=== PATIENT | male | born 1950 | race Caucasian/White ===

== ENCOUNTER → 2016-09-17 | Outpatient (CLI) | payer MEDICARE, OTHER ==
[~2016-09-17] MED LIST: CALCIUM + D 6001 TA1 PO; CARDI-OMEGA1000 MG PO; COZAAR100 MG PO; IBUPRIN200 MG PO; LORATADINE10 MG PO; PRILOSEC 20MG20 MG PO; TIAZAC360 MG PO
== END ==
LOC: LAB 11:08
DX: C61 Malignant neoplasm of prostate (principal); I25.10 Atherosclerotic heart disease of native coronary artery without angina pectoris; I10 Essential (primary) hypertension; E78.2 Mixed hyperlipidemia

== ENCOUNTER → 2017-08-12 | Outpatient (CLI) | payer MEDICARE, OTHER ==
[2013-11-23 10:23] VITALS: BP 144/88
[2017-08-12 11:25] LABS: EOS # 0.2 (0.04-0.40); EOS % 2.5 % (0.0-4.0); HEMATOCRIT 46.9 % (42.0-52.0); HEMOGLOBIN 15.3 g/dL (13.5-18.0); LYMPH# 1.9 (1.50-4.00); MEAN CELL VOLUME 90 fl (78-100); MEAN CORPUSCULAR HEMOGLOBIN 29 pg (27-31); MEAN CORPUSCULAR HGB CONC 33 g/dL (33-37); MEAN PLATELET VOLUME 9.6 fl (7.4-10.4); MONO # 0.6 (0.20-0.80); NEU # 3.3 (1.40-6.50); PLATELET COUNT 223 K/mm3 (130-400); RED BLOOD COUNT 5.22 M/mm3 (4.20-5.60); RED CELL DISTRIBUTION WIDTH 13.1 % (11.5-14.5)
[2017-08-12 11:39] LABS: ALBUMIN 3.8 g/dL (3.5-5.0); BUN/CREATININE RATIO 18.6 (6.0-26.0); CALCIUM 8.3 mg/dL (8.4-10.2); POTASSIUM 3.5 mmol/L (3.6-5.0); TOTAL BILIRUBIN 0.7 mg/dL (0.2-1.3); TOTAL PROTEIN 7.4 g/dL (6.3-8.2)
[2017-08-12 12:45] LABS: ERYTHROCYTE SEDIMENTATION RATE 7 mm/hr (0-20)
[2017-08-13 00:27] LABS: TESTOSTERONE 554 ng/dL (221-716)
== END ==
LOC: LAB 11:09
PROVIDERS: Internal Medicine
DX: I10 Essential (primary) hypertension (principal); C61 Malignant neoplasm of prostate; D50.8 Other iron deficiency anemias; I25.10 Atherosclerotic heart disease of native coronary artery without angina pectoris; E78.2 Mixed hyperlipidemia; N52.1 Erectile dysfunction due to diseases classified elsewhere; Z12.11 Encounter for screening for malignant neoplasm of colon

== ENCOUNTER → 2017-09-04 | Outpatient (CLI) | payer MEDICARE, OTHER ==
[~2017-09-04] VITALS: Ht 182.9 cm; Wt 113.7 kg
[~2017-09-04] MED LIST changes: +ATORVASTATIN CA20 MG PO; +LASIX40 M1 PO; +LOSARTAN POTAS100 MG PO; +POTASSIUM CHLO10 ME8 PO; +TAZTIA XT120 MG PO
[2017-09-04 13:29] VITALS: BP 134/78
[2017-09-04 13:44] LABS: POTASSIUM 3.4 mmol/L (3.6-5.0)
[2017-09-04 13:46] LABS: BUN/CREATININE RATIO 17.3 (6.0-26.0); CALCIUM 8.2 mg/dL (8.4-10.2)
== END ==
LOC: AMSURD 12:16
PROVIDERS: Internal Medicine Cardiovascular Disease
DX: Z79.899 Other long term (current) drug therapy (principal); R06.02 Shortness of breath

== ENCOUNTER → 2017-09-12 | Outpatient (CLI) | payer MEDICARE, OTHER ==
[2017-09-04 13:29] VITALS: BP 134/78
[2017-09-12 15:37] LABS: ALBUMIN 3.6 g/dL (3.5-5.0); CALCIUM 8.1 mg/dL (8.4-10.2); POTASSIUM 3.7 mmol/L (3.6-5.0); TOTAL BILIRUBIN 0.5 mg/dL (0.2-1.3); TOTAL PROTEIN 7.3 g/dL (6.3-8.2)
[2017-09-12 16:24] LABS: EOS # 0.2 (0.04-0.40); EOS % 3.3 % (0.0-4.0); HEMATOCRIT 46.2 % (42.0-52.0); HEMOGLOBIN 15.5 g/dL (13.5-18.0); LYMPH# 1.8 (1.50-4.00); MEAN CELL VOLUME 90 fl (78-100); MEAN CORPUSCULAR HEMOGLOBIN 30 pg (27-31); MEAN CORPUSCULAR HGB CONC 34 g/dL (33-37); MEAN PLATELET VOLUME 10.4 fl (7.4-10.4); MONO # 0.7 (0.20-0.80); NEU # 3.9 (1.40-6.50); PLATELET COUNT 205 K/mm3 (130-400); RED BLOOD COUNT 5.13 M/mm3 (4.20-5.60); RED CELL DISTRIBUTION WIDTH 13.4 % (11.5-14.5); WHITE BLOOD COUNT 6.6 K/mm3 (4.8-10.8)
== END ==
LOC: LAB 14:59
PROVIDERS: Internal Medicine Cardiovascular Disease
DX: I10 Essential (primary) hypertension (principal); I25.810 Atherosclerosis of coronary artery bypass graft(s) without angina pectoris

== ENCOUNTER → 2017-10-24 | Outpatient (CLI) | payer MEDICARE, OTHER ==
[2017-09-04 13:29] VITALS: BP 134/78
[2017-10-24 15:45] LABS: CALCIUM 8.5 mg/dL (8.4-10.2); POTASSIUM 4.2 mmol/L (3.6-5.0)
== END ==
LOC: LAB 14:57
PROVIDERS: Internal Medicine Cardiovascular Disease
DX: E78.5 Hyperlipidemia, unspecified (principal); I10 Essential (primary) hypertension

== ENCOUNTER → 2017-12-04 | Outpatient (CLI) | payer MEDICARE, OTHER ==
[2017-09-04 13:29] VITALS: BP 134/78
== END ==
LOC: RAD 10:35
DX: M47.816 Spondylosis without myelopathy or radiculopathy, lumbar region (principal); I70.0 Atherosclerosis of aorta; R93.7 Abnormal findings on diagnostic imaging of other parts of musculoskeletal system

== ENCOUNTER → 2018-02-12 | Outpatient (CLI) | payer MEDICARE, OTHER ==
[~2018-02-12] VITALS: Ht 182.9 cm; Wt 113.7 kg
[2018-02-12 12:45] LABS: EOS # 0.3 (0.04-0.40); HEMATOCRIT 42.6 % (42.0-52.0); HEMOGLOBIN 14.1 g/dL (13.5-18.0); MEAN CELL VOLUME 93 fl (78-100); MEAN CORPUSCULAR HEMOGLOBIN 31 pg (27-31); MEAN CORPUSCULAR HGB CONC 33 g/dL (33-37); MEAN PLATELET VOLUME 10.7 fl (7.4-10.4); MONO # 0.7 (0.20-0.80); NEU # 3.3 (1.40-6.50); PLATELET COUNT 154 K/mm3 (130-400); RED BLOOD COUNT 4.59 M/mm3 (4.20-5.60); RED CELL DISTRIBUTION WIDTH 13.6 % (11.5-14.5); WHITE BLOOD COUNT 6.3 K/mm3 (4.8-10.8)
[2018-02-12 12:54] LABS: EOS % 5.4 % (0.0-4.0)
[2018-02-12 12:56] VITALS: BP 194/104
[2018-02-12 13:01] LABS: ALBUMIN 3.5 g/dL (3.5-5.0); BUN/CREATININE RATIO 20.2 (6.0-26.0); POTASSIUM 3.8 mmol/L (3.6-5.0); TOTAL BILIRUBIN 0.7 mg/dL (0.2-1.3); TOTAL PROTEIN 6.5 g/dL (6.3-8.2)
== END ==
LOC: RAD 11:52
PROVIDERS: Physician Assistant
DX: I51.7 Cardiomegaly (principal); R06.00 Dyspnea, unspecified

== ENCOUNTER → 2018-04-09 | Outpatient (CLI) | payer MEDICARE, OTHER ==
[2018-02-12 12:56] VITALS: BP 194/104
[2018-04-09 10:57] LABS: CALCIUM 8.8 mg/dL (8.4-10.2); POTASSIUM 4.1 mmol/L (3.6-5.0)
== END ==
LOC: LAB 10:20
PROVIDERS: Nurse Practitioner Family
DX: R06.01 Orthopnea (principal); R06.00 Dyspnea, unspecified

== ENCOUNTER → 2018-04-13 | Outpatient (CLI) | payer MEDICARE, OTHER ==
[~2018-04-13] VITALS: Ht 182.9 cm; Wt 113.7 kg
[2018-04-13 18:48] VITALS: BP 172/88
== END ==
LOC: RAD 12:00 → AMSURD 17:19
DX: I51.7 Cardiomegaly (principal); Z95.1 Presence of aortocoronary bypass graft; Z86.79 Personal history of other diseases of the circulatory system

== ENCOUNTER → 2018-04-17 | Outpatient (CLI) | payer MEDICARE, OTHER ==
[~2018-04-17] VITALS: Ht 182.9 cm; Wt 104.5 kg
[~2018-04-17] MED LIST changes: +BP MED
[2018-04-17 07:51] VITALS: BP 190/77
--- NOTE | 2018-04-17 08:00 | NUR ---
PATIENT FEELING AT HIS BASELINE. HE IS AMBULATORY TO [facility] FOR APPT WITH DR CALABRESE.
== END ==
LOC: AMSURD 07:46
DX: R06.00 Dyspnea, unspecified (principal); R00.1 Bradycardia, unspecified; I25.10 Atherosclerotic heart disease of native coronary artery without angina pectoris

== ENCOUNTER 2018-09-02 10:42 | Emergency (ER) | payer MEDICARE, OTHER ==
[~2018-09-02 10:42] MED LIST changes: +LASIX20 M1 PO; -LASIX40 M1 PO
[2018-09-02] MEDS ORDERED: CARVEDILOL6.25 MG PO (10:54)
[2018-09-02] MEDS ORDERED: DILTIAZEM HCL360 M2 PO (10:54)
[2018-09-02] MEDS ORDERED: ATORVASTATIN CA20 MG PO (10:54)
[2018-09-02 11:20] LABS: EOS # 0.2 (0.04-0.40); EOS % 3.2 % (0.0-4.0); HEMOGLOBIN 14.8 g/dL (13.5-18.0); LYMPH# 1.5 (1.50-4.00); MEAN CELL VOLUME 91 fl (78-100); MEAN CORPUSCULAR HEMOGLOBIN 30 pg (27-31); MEAN CORPUSCULAR HGB CONC 33 g/dL (33-37); MEAN PLATELET VOLUME 10.3 fl (7.4-10.4); MONO # 0.5 (0.20-0.80); NEU # 3.2 (1.40-6.50); PLATELET COUNT 173 K/mm3 (130-400); RED BLOOD COUNT 4.93 M/mm3 (4.20-5.60); RED CELL DISTRIBUTION WIDTH 12.9 % (11.5-14.5); WHITE BLOOD COUNT 5.4 K/mm3 (4.8-10.8)
[2018-09-02 11:34] LABS: ALBUMIN 3.6 g/dL (3.5-5.0); CALCIUM 8.4 mg/dL (8.4-10.2); POTASSIUM 3.6 mmol/L (3.6-5.0); TOTAL BILIRUBIN 0.7 mg/dL (0.2-1.3); TOTAL PROTEIN 6.7 g/dL (6.3-8.2)
[2018-09-02] MEDS ORDERED: NEURONTIN300 M1 PO (12:08)
[2018-09-02 12:18] VITALS: BP 161/90
== END 2018-09-02 12:19 | disposition home or self-care (01) ==
LOC: ED 10:42
PROVIDERS: Physician Assistant
DX: G62.9 Polyneuropathy, unspecified (principal); M19.90 Unspecified osteoarthritis, unspecified site; I25.10 Atherosclerotic heart disease of native coronary artery without angina pectoris; K21.9 Gastro-esophageal reflux disease without esophagitis; Z95.0 Presence of cardiac pacemaker

== ENCOUNTER → 2019-08-30 | Outpatient (CLI) | payer MEDICARE, OTHER ==
[~2019-08-30] MED LIST changes: +CARVEDILOL6.25 MG PO; +DILTIAZEM HCL360 M2 PO; +NEURONTIN300 M1 PO
[2019-08-30 12:19] LABS: ALBUMIN 3.8 g/dL (3.4-4.8); POTASSIUM 3.4 mmol/L (3.5-5.1)
[2019-08-30 12:21] LABS: CALCIUM 8.6 mg/dL (8.3-10.5)
[2019-08-30 12:22] LABS: TOTAL PROTEIN 7.4 g/dL (6.2-8.1)
[2019-08-30 12:24] LABS: TOTAL BILIRUBIN 0.6 mg/dL (0.2-1.2)
[2019-08-30 12:28] LABS: MAGNESIUM 1.98 mg/dL (1.60-2.60)
== END ==
LOC: LAB 11:58
PROVIDERS: Internal Medicine
DX: I25.10 Atherosclerotic heart disease of native coronary artery without angina pectoris (principal)

== ENCOUNTER → 2019-09-06 | Outpatient (CLI) | payer MEDICARE, OTHER ==
[2019-09-06 12:13] LABS: POTASSIUM 3.4 mmol/L (3.5-5.1)
[2019-09-06 12:14] LABS: CALCIUM 8.4 mg/dL (8.3-10.5)
[2019-09-06 12:21] LABS: MAGNESIUM 1.96 mg/dL (1.60-2.60)
== END ==
LOC: LAB 08:48
PROVIDERS: Urology
DX: I25.10 Atherosclerotic heart disease of native coronary artery without angina pectoris (principal)

== ENCOUNTER → 2019-10-25 | Outpatient (CLI) | payer MEDICARE, OTHER ==
[2019-10-25 12:21] LABS: ALBUMIN 3.4 g/dL (3.4-4.8); POTASSIUM 3.4 mmol/L (3.5-5.1)
[2019-10-25 12:22] LABS: CALCIUM 8.6 mg/dL (8.3-10.5)
[2019-10-25 12:23] LABS: TOTAL PROTEIN 6.6 g/dL (6.2-8.1)
[2019-10-25 12:25] LABS: TOTAL BILIRUBIN 0.6 mg/dL (0.2-1.2)
[2019-10-25 12:30] LABS: MAGNESIUM 1.89 mg/dL (1.60-2.60)
== END ==
LOC: LAB 11:55
PROVIDERS: Internal Medicine
DX: I10 Essential (primary) hypertension (principal); I25.10 Atherosclerotic heart disease of native coronary artery without angina pectoris

== ENCOUNTER → 2019-12-06 | Outpatient (CLI) | payer MEDICARE, OTHER ==
[2019-12-06 15:08] LABS: POTASSIUM 3.4 mmol/L (3.5-5.1)
[2019-12-06 15:09] LABS: CALCIUM 8.6 mg/dL (8.3-10.5)
[2019-12-06 15:15] LABS: MAGNESIUM 2.12 mg/dL (1.60-2.60)
== END ==
LOC: LAB 14:14
PROVIDERS: Internal Medicine
DX: I25.10 Atherosclerotic heart disease of native coronary artery without angina pectoris (principal)

== ENCOUNTER → 2021-09-15 | Outpatient (CLI) | payer MEDICARE, OTHER | LOC: LAB 11:02 | DX: Z85.46 Personal history of malignant neoplasm of prostate (principal) ==

== ENCOUNTER → 2021-10-22 | Outpatient (CLI) | payer MEDICARE, OTHER ==
[2021-10-22 12:53] LABS: BASO # 0.01 K/mm3 (0.02-0.10); EOS % 4.5 % (0.0-4.0); HEMATOCRIT 43.6 % (42.0-52.0); HEMOGLOBIN 14.3 g/dL (13.5-18.0); LYMPH# 1.86 K/mm3 (1.50-4.00); MEAN CELL VOLUME 92 fl (78-100); MEAN CORPUSCULAR HEMOGLOBIN 30 pg (27-31); MEAN CORPUSCULAR HGB CONC 33 g/dL (33-37); MONO # 0.67 K/mm3 (0.20-0.80); PLATELET COUNT 182 K/mm3 (130-400); RED BLOOD COUNT 4.73 M/mm3 (4.20-5.60); RED CELL DISTRIBUTION WIDTH 12.3 % (11.5-14.5); WHITE BLOOD COUNT 6.7 K/mm3 (4.8-10.8)
[2021-10-22 13:10] LABS: ALBUMIN 3.7 g/dL (3.4-4.8); POTASSIUM 3.2 mmol/L (3.5-5.1)
[2021-10-22 13:11] LABS: CALCIUM 8.9 mg/dL (8.3-10.5)
[2021-10-22 13:12] LABS: TOTAL PROTEIN 7.1 g/dL (6.2-8.1)
[2021-10-22 13:19] LABS: MAGNESIUM 1.9 mg/dL (1.60-2.60)
[2021-10-22 15:00] LABS: ERYTHROCYTE SEDIMENTATION RATE 10 mm/hr (0-20)
== END ==
LOC: LAB 12:35
PROVIDERS: Internal Medicine
DX: Z12.11 Encounter for screening for malignant neoplasm of colon (principal); C61 Malignant neoplasm of prostate; I10 Essential (primary) hypertension; K90.9 Intestinal malabsorption, unspecified; H18.519 Endothelial corneal dystrophy, unspecified eye; G08 Intracranial and intraspinal phlebitis and thrombophlebitis; I44.2 Atrioventricular block, complete; I25.10 Atherosclerotic heart disease of native coronary artery without angina pectoris; I61.1 Nontraumatic intracerebral hemorrhage in hemisphere, cortical; D50.9 Iron deficiency anemia, unspecified; E78.2 Mixed hyperlipidemia; J30.1 Allergic rhinitis due to pollen; L98.9 Disorder of the skin and subcutaneous tissue, unspecified

== ENCOUNTER → 2024-05-10 | Outpatient (CLI) | payer MEDICARE, OTHER ==
[~2024-05-10] MED LIST changes: +FUROSEMIDE20 MG PO; +HCTZ 25MG25 MG PO; +VITAMIN D3125 MC4 PO
[2024-05-10 11:17] LABS: BASO # 0.01 K/mm3 (0.02-0.10); EOS # 0.22 K/mm3 (0.04-0.40); EOS % 3.4 % (0.0-4.0); HEMATOCRIT 42.4 % (42.0-52.0); HEMOGLOBIN 14.1 g/dL (13.5-18.0); LYMPH# 1.53 K/mm3 (1.50-4.00); MEAN CELL VOLUME 93 fl (78-100); MEAN CORPUSCULAR HEMOGLOBIN 31 pg (27-31); MEAN CORPUSCULAR HGB CONC 33 g/dL (33-37); MEAN PLATELET VOLUME 9.4 fl (7.4-10.4); MONO # 0.62 K/mm3 (0.20-0.80); NEU # 4.03 K/mm3 (1.40-6.50); PLATELET COUNT 167 K/mm3 (130-400); RED BLOOD COUNT 4.56 M/mm3 (4.20-5.60); RED CELL DISTRIBUTION WIDTH 12.3 % (11.5-14.5); WHITE BLOOD COUNT 6.4 K/mm3 (4.8-10.8)
[2024-05-10 11:22] LABS: ALBUMIN 3.7 g/dL (3.4-4.8)
[2024-05-10 11:25] LABS: TOTAL PROTEIN 6.7 g/dL (6.2-8.1)
[2024-05-10 11:27] LABS: TOTAL BILIRUBIN 0.7 mg/dL (0.2-1.2)
[2024-05-10 11:31] LABS: MAGNESIUM 2.14 mg/dL (1.60-2.60)
[2024-05-10 14:19] LABS: URINE APPEARANCE CLEAR (CLEAR); URINE COLOR YELLOW (YELLOW)
[2024-05-10 14:20] LABS: PH-URINE 7.5 (5.0 - 8.0); URINE BILIRUBIN NEGATIVE (NEGATIVE); URINE BLOOD NEGATIVE (NEGATIVE); URINE GLUCOSE NEGATIVE (NEGATIVE); URINE KETONE NEGATIVE (NEGATIVE); URINE LEUKOCYTE ESTERASE NEGATIVE (NEGATIVE); URINE NITRATE NEGATIVE (NEGATIVE); URINE PROTEIN(semi-quant) NEGATIVE (NEGATIVE); URINE WBC 0-1 /hpf (0-3)
== END ==
LOC: LAB 10:59
PROVIDERS: Internal Medicine
DX: Z01.810 Encounter for preprocedural cardiovascular examination (principal); Z01.811 Encounter for preprocedural respiratory examination; Z95.0 Presence of cardiac pacemaker

== ENCOUNTER → 2024-05-18 | Outpatient (CLI) | payer MEDICARE, OTHER ==
[2024-05-18 10:53] LABS: CALCIUM 8.6 mg/dL (8.3-10.5)
== END ==
LOC: LAB 10:27
PROVIDERS: Internal Medicine
DX: E87.6 Hypokalemia (principal)

== ENCOUNTER → 2024-05-21 | Outpatient (CLI) | payer MEDICARE, OTHER ==
[2024-05-21 10:55] LABS: CALCIUM 8.7 mg/dL (8.3-10.5)
[2024-05-21 11:02] LABS: MAGNESIUM 2.03 mg/dL (1.60-2.60)
== END ==
LOC: LAB 10:35
PROVIDERS: Internal Medicine
DX: E87.6 Hypokalemia (principal)

== ENCOUNTER → 2024-06-29 | Outpatient (CLI) | payer MEDICARE, OTHER ==
[2024-06-29 14:19] LABS: BASO # 0.01 K/mm3 (0.02-0.10); EOS % 5.2 % (0.0-4.0); HEMATOCRIT 41.6 % (42.0-52.0); HEMOGLOBIN 13.7 g/dL (13.5-18.0); LYMPH# 1.98 K/mm3 (1.50-4.00); MEAN CELL VOLUME 93 fl (78-100); MEAN CORPUSCULAR HEMOGLOBIN 31 pg (27-31); MEAN CORPUSCULAR HGB CONC 33 g/dL (33-37); MEAN PLATELET VOLUME 9.4 fl (7.4-10.4); NEU # 2.81 K/mm3 (1.40-6.50); PLATELET COUNT 158 K/mm3 (130-400); RED BLOOD COUNT 4.48 M/mm3 (4.20-5.60); RED CELL DISTRIBUTION WIDTH 12.6 % (11.5-14.5); WHITE BLOOD COUNT 5.8 K/mm3 (4.8-10.8)
[2024-06-29 14:30] LABS: ALBUMIN 3.5 g/dL (3.4-4.8)
[2024-06-29 14:32] LABS: CALCIUM 9.3 mg/dL (8.3-10.5)
[2024-06-29 14:33] LABS: TOTAL PROTEIN 6.6 g/dL (6.2-8.1)
[2024-06-29 14:35] LABS: TOTAL BILIRUBIN 0.5 mg/dL (0.2-1.2)
[2024-06-29 14:39] LABS: MAGNESIUM 1.93 mg/dL (1.60-2.60)
== END ==
LOC: LAB 14:08
PROVIDERS: Internal Medicine
DX: I10 Essential (primary) hypertension (principal)

== ENCOUNTER → 2024-11-08 | Outpatient (CLI) | payer MEDICARE, OTHER ==
[2024-11-08 16:11] LABS: ALBUMIN 3.7 g/dL (3.4-4.8)
[2024-11-08 16:13] LABS: CALCIUM 8.8 mg/dL (8.3-10.5)
[2024-11-08 16:14] LABS: TOTAL PROTEIN 7.2 g/dL (6.2-8.1)
[2024-11-08 16:16] LABS: TOTAL BILIRUBIN 0.5 mg/dL (0.2-1.2)
[2024-11-08 16:20] LABS: MAGNESIUM 2.07 mg/dL (1.60-2.60)
== END ==
LOC: LAB 15:46
PROVIDERS: Internal Medicine
DX: I10 Essential (primary) hypertension (principal)